=== PATIENT | male | born 2000 | race Caucasian/White ===

== ENCOUNTER 2020-06-15 20:56 | Emergency (ER) | payer SELFPAY ==
[~2020-06-15] VITALS: Ht 177.8 cm; Wt 68.0 kg
[2020-06-15 20:56] VITALS: BP_SYST 164
[2020-06-15 22:56] VITALS: BP_SYST 164
== END 2020-06-15 22:56 | disposition home or self-care (01) ==
LOC: SED 20:56
DX: M54.5 Low back pain (principal)
CPT/HCPCS: 99281